=== PATIENT | female | born 1950 | race Hispanic/Latino ===

== ENCOUNTER 2021-01-14 08:50 | Emergency (ER) | payer MEDICARE, OTHER ==
[~2021-01-14] VITALS: Ht 152.4 cm; Wt 75.3 kg
[~2021-01-14 08:50] MED LIST: ASPIRIN EC325 MG PO; GABAPENTIN300 MG PO; GLUCOPHAGE500 MG PO; HEALTHYLAX17 GM PO; IBUPROFEN100 MG/5 M PO; LIPITOR10 MG PO; LOSARTAN POTASS25 MG PO; METFORMIN HCL500 M1 PO; OMEPRAZOLE10 MG PO; OXYCODONE HCL5 MG PO; SENNA LAX8.6 MG PO; TYLENOL EXTRA500 MG PO; ULTRAM50 MG PO
--- OUTSIDE RECORDS SUMMARY | 2021-01-14 08:56 | XMS ---
PreManage Notification: IMELDA GONZALEZ MA Security Circular Stuffer Events No recent Security Events currently on file [facility] MET - [facility] There are no care providers on record at this time. Alexandra has no Care Guidelines for this patient. Hellen VISIT COUNT (12 MO.) 1 [facility] TOTAL 1 NOTE: Visits indicate total known visits. ED/C VISIT TRACKING (12 MO.) 01/14/2021 08:51 [facility] [place] TYPE: Emergency COMPLAINT: - LOST VISION, DIABETIC INPATIENT VISIT TRACKING (12 MO.) No inpatient visits to display in this time frame [email or web address]
[2021-01-14] MEDS ORDERED: HYDROCODON-ACE1 EA10 PO (10:59)
== END 2021-01-14 11:30 | disposition home or self-care (01) ==
LOC: ED 08:50
DX: R51.9 Headache, unspecified (principal); R09.81 Nasal congestion; Z20.822 Contact with and (suspected) exposure to COVID-19; E78.00 Pure hypercholesterolemia, unspecified; I10 Essential (primary) hypertension; E11.9 Type 2 diabetes mellitus without complications; Z88.8 Allergy status to other drugs, medicaments and biological substances; Z79.899 Other long term (current) drug therapy; Z79.84 Long term (current) use of oral hypoglycemic drugs
CPT/HCPCS: 70450; 80053; 81001; 85025; 96374; 99284-25; C9803; J1170; U0003

== ENCOUNTER 2021-01-15 12:24 | Emergency (ER) | payer MEDICARE, OTHER ==
[~2021-01-15] VITALS: Ht 152.4 cm; Wt 78.9 kg
[~2021-01-15 12:24] MED LIST changes: +HYDROCODON-ACE1 EA10 PO
--- OUTSIDE RECORDS SUMMARY | 2021-01-15 12:32 | XMS ---
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 ECrista VISIT COUNT (12 MO.) 2 [facility] TOTAL 2 NOTE: Visits indicate total known visits. ED/UCC VISIT TRACKING (12 MO.) 01/15/2021 12:[address] [facility] [place] TYPE: Emergency COMPLAINT: - R SIDE FACE DROOPING, NOT ABLE TO SEE 01/14/2021 08:[address] [facility] [place] TYPE: Emergency COMPLAINT: - LOST VISION, DIABETIC INPATIENT VISIT TRACKING (12 MO.) No inpatient visits to display in this time frame [email or web address]
--- NOTE | 2021-01-15 21:20 | EKG ---
[facility] [address] [address] [place], [place] [address] Signed Sinus bradycardia Left axis deviation Abnormal ECG Confirmed by CARLOS URIAS DO ([id number]) on 01/15/2021 9:20:07 PM Electronically Signed By: CARLOS URIAS DO 01/15/212119 PATIENT NAME: RAFAELA PIMENTEL Electrocardiogram DATE OF : 48 PHYSICIAN: CARLOS URIAS DO REPORT #: [id number] REPORT IS CONFIDENTIAL AND NOT TO BE RELEASED WITHOUT AUTHORIZATION
== END 2021-01-15 18:16 | disposition short-term general hospital (02) ==
LOC: ED 12:24
DX: H49.01 Third [oculomotor] nerve palsy, right eye (principal); R51.9 Headache, unspecified; E78.00 Pure hypercholesterolemia, unspecified; I10 Essential (primary) hypertension; E11.9 Type 2 diabetes mellitus without complications; Z88.8 Allergy status to other drugs, medicaments and biological substances; Z79.899 Other long term (current) drug therapy; Z79.84 Long term (current) use of oral hypoglycemic drugs
CPT/HCPCS: 70450; 70496; 70498; 70553; 71045; 80053; 85025; 85610; 85651; 85730; 86140; 93005; 93010; 99285-25; A9577; A9579; Q3014; Q9967; U0003